=== PATIENT | male | born 1960 | race Caucasian/White ===

== ENCOUNTER 2018-07-07 07:23 | Inpatient (IN) ==
[2018-07-07] MEDS ORDERED: Isovue-370 500 ML INFUS..BTL IV ONE (07:42)
[2018-07-07] MEDS ORDERED: *HR* FentaNYL (PF) 100 MCG/2 ML VIAL IVP ONE (07:42)
[2018-07-07] MEDS ORDERED: Ondansetron 4 MG/2 ML VIAL IVP ONE (07:43)
--- NOTE | 2018-07-07 07:46 | Emergency Department Note ---
Disposition Clinical Impression: Anemia, UTI (urinary tract infection), Hyperkalemia, Hyponatremia, Ileus, Abdominal pain, Metastatic cancer Disposition: Admitted As Inpatient Condition: Fair General Adult HPI - General Chief complaint: ED Abdominal Pain Stated complaint: Abdominal Pain Time Seen by Provider: 07/07/18 07:30 Source: EMS Limitations: no limitations - History of Present Illness Pain Scale: 8 - Related Data Home Medications Medication Instructions Recorded Confirmed Loperamide HCl [Anti-Diarrheal] 2 mg PO Q4HR PRN 07/04/18 07/07/18 Polyethylene Glycol 3350 [MiraLAX] 17 gm PO DAILY PRN 07/04/18 07/07/18 Prochlorperazine Maleate 10 mg PO Q6HR PRN 07/04/18 07/07/18 [Compazine] Morphine Sulfate SR (12 HR) [MS 15 mg PO Q12HR 07/07/18 07/07/18 Contin] Oxycodone HCl/Acetaminophen 1 tab PO Q4H PRN 07/07/18 07/07/18 [Percocet 5-325 mg Tablet] Promethazine [Phenergan] 25 mg PO Q6HR PRN 07/07/18 07/07/18 Allergies Allergy/AdvReac Type Severity Reaction Status Date / Time No Known Allergies Allergy Verified 06/29/18 08:58 Past Medical History - Past Medical History Medical history: Reports: cancer, COPD, other Psychiatric history: Reports: anxiety, depression, prior suicide attempt, previous psychiatric hospitalization - Social History Smoking Status: Current some day smoker Smokeless Tobacco Status: No Alcohol use: Reports: none Drug use: Reports: marijuana Physical Exam - General Limitations: no limitations General appearance: alert Course Vital Signs Temperature 97.9 F 07/07/18 07:28 Pulse Rate 93 07/07/18 07:28 Respiratory Rate 22 07/07/18 07:28 Blood Pressure 116/51 07/07/18 07:28 O2 Sat by Pulse Oximetry 100 07/07/18 07:28 Temperature 97.8 F 07/07/18 09:42 Pulse Rate 87 07/07/18 11:05 Respiratory Rate 23 07/07/18 11:05 Blood Pressure 124/65 07/07/18 11:05 O2 Sat by Pulse Oximetry 100 07/07/18 11:05 Oxygen Delivery Oxygen Delivery Aerosol Mask Medical Decision Making - Lab Data Result diagrams: 07/07/18 08:04 07/07/18 08:04 Lab Results 07/07/18 07/07/18 07/07/18 Range/Units 08:04 08:04 08:04 WBC 3.6 L (4.3-11.1) K/mcL RBC 1.71 L (4.19-5.50) M/mcL Hgb 4.7 L* D (12.9-16.9) g/dL Hct 15.2 L (37.5-50.1) % MCV 88.9 (83.0-100.0) fL MCH 27.5 L (28.0-33.3) pg MCHC 30.9 L (31.6-35.5) g/dL RDW 19.3 H (11.5-14.5) % Plt Count 207 (140-400) K/mcL MPV 10.4 (9.4-12.4) fL Immature Gran % Test Not Performed Seg Neutrophils % 74.0 % Band Neutrophils % 2.0 (0-4) % Lymphocytes % 16.0 % Monocytes % 8.0 % Eosinophils % Test Not Performed Basophils % Test Not Performed Neutrophils # 2.7 (1.6-8.9) K/mcL Lymphocytes # 0.6 (0.6-4.6) K/mcL Monocytes # 0.3 (0.0-1.3) K/mcL Eosinophils # Test Not Performed Basophils # Test Not Performed Platelet Estimate Normal (Normal) Hypochromasia Present A (Not Present) Anisocytosis 1+ A (Not Present) Sodium 128 L (136-145) mEq/L Potassium 5.8 H (3.5-5.1) mEq/L Chloride 97 L (98-107) mEq/L Carbon Dioxide 17 L (23-29) mEq/L BUN 56 H (8-23) mg/dL Creatinine 2.10 H (0.70-1.30) mg/dL Est GFR ( Amer) 39 L (> 60) Est GFR (Non-Af Amer) 32 L (> 60) BUN/Creatinine Ratio 27 H (6-26) Glucose 95 (70-105) mg/dL Calculated Osmolality 281 (280-300) Calcium 8.7 (8.6-10.3) mg/dL Total Bilirubin 1.3 H (0.3-1.0) mg/dL AST 432 H (13-39) Units/L ALT 191 H (7-52) Units/L Alkaline Phosphatase 744 H (34-104) Units/L Troponin I < 0.03 (< 0.04) ng/mL Serum Total Protein 6.0 L (6.4-8.9) g/dL Albumin 3.1 L (3.5-5.7) g/dL Globulin 2.9 (2.4-3.5) g/dL Albumin/Globulin Ratio 1.1 (1.1-2.2) Lipase 10 L (11-82) Units/L Urine Color (Yellow) Urine Clarity (Clear) Urine pH (5.0-8.0) pH Units Ur Specific [place] (1.010-1.025) Urine Protein (Neg-Trace) mg/dL Urine Glucose (UA) (Normal) mg/dL Urine Ketones (Negative) mg/dL Urine Blood (Negative) Urine Nitrite (Negative) Urine Bilirubin (Negative) Urine Urobilinogen (Normal) mg/dL Ur Leukocyte Esterase (Negative) Urine Microscopic RBC (0-3) per hpf Urine Microscopic WBC (0-3) per hpf Ur Squamous Epith Cells (None-Few) per lpf Urine Bacteria (None-Few) per hpf Hyaline Casts (None-Few) per lpf Ur Culture Indicated? (NO) Blood Type O POSITIVE Antibody Screen NEGATIVE Crossmatch See Detail 07/07/18 Range/Units 10:06 WBC (4.3-11.1) K/mcL RBC (4.19-5.50) M/mcL Hgb (12.9-16.9) g/dL Hct (37.5-50.1) % MCV (83.0-100.0) fL MCH (28.0-33.3) pg MCHC (31.6-35.5) g/dL RDW (11.5-14.5) % Plt Count (140-400) K/mcL MPV (9.4-12.4) fL Immature Gran % Seg Neutrophils % % Band Neutrophils % (0-4) % Lymphocytes % % Monocytes % % Eosinophils % Basophils % Neutrophils # (1.6-8.9) K/mcL Lymphocytes # (0.6-4.6) K/mcL Monocytes # (0.0-1.3) K/mcL Eosinophils # Basophils # Platelet Estimate (Normal) Hypochromasia (Not Present) Anisocytosis (Not Present) Sodium (136-145) mEq/L Potassium (3.5-5.1) mEq/L Chloride (98-107) mEq/L Carbon Dioxide (23-29) mEq/L BUN (8-23) mg/dL Creatinine (0.70-1.30) mg/dL Est GFR ( Amer) (> 60) Est GFR (Non-Af Amer) (> 60) BUN/Creatinine Ratio (6-26) Glucose (70-105) mg/dL Calculated Osmolality (280-300) Calcium (8.6-10.3) mg/dL Total Bilirubin (0.3-1.0) mg/dL AST (13-39) Units/L ALT (7-52) Units/L Alkaline Phosphatase (34-104) Units/L Troponin I (< 0.04) ng/mL Serum Total Protein (6.4-8.9) g/dL Albumin (3.5-5.7) g/dL Globulin (2.4-3.5) g/dL Albumin/Globulin Ratio (1.1-2.2) Lipase (11-82) Units/L Urine Color Sue A (Yellow) Urine Clarity Turbid A (Clear) Urine pH 5.0 (5.0-8.0) pH Units Ur Specific [place] 1.025 (1.010-1.025) Urine Protein 30 H (Neg-Trace) mg/dL Urine Glucose (UA) Normal (Normal) mg/dL Urine Ketones Trace H (Negative) mg/dL Urine Blood Trace H (Negative) Urine Nitrite Positive A (Negative) Urine Bilirubin Moderate H (Negative) Urine Urobilinogen 2.0 H (Normal) mg/dL Ur Leukocyte Esterase Small H (Negative) Urine Microscopic RBC 0-3 (0-3) per hpf Urine Microscopic WBC 3-5 H (0-3) per hpf Ur Squamous Epith Cells Moderate H (None-Few) per lpf Urine Bacteria Few (None-Few) per hpf Hyaline Casts None Seen (None-Few) per lpf Ur Culture Indicated? YES A (NO) Blood Type Antibody Screen Crossmatch Critical Care Time Critical Care Time: Yes Total Critical Care Time: 45 Attestation: The high probability of a clinically significant, sudden or life threatening deterioration of the [] system(s) required my full and direct attention, intervention and personal management. The aggregate critical care time was [] minutes. This time is in addition to time spent performing reported procedures but includes the following: [] Data Review and interpretation [] Patient assessment and monitoring of vital signs [] Documentation [] Medication orders and management Attestation Statement - Attestation Attestation: I examined this patient and my medical decision-making was reviewed with the Resident Physician. I agree with the documented findings, disposition and treatment plan as described except to the extent set forth below. [id number] time provided Patient arrives by EMS complaining of increased abdominal girth and smaller caliber stools. He has a history of advanced metastatic cancer-primary kidney. He stopped chemotherapy 3 weeks ago "because it almost killed me." On exam the patient is frail-appearing, thin, emaciated, pale. His abdomen is distended. Concern for constipation versus obstruction versus ileus versus mechanical obstruction. Workup initiated. We are considering discussing the case with palliative care as well for consultation
--- NOTE | 2018-07-07 08:01 | Emergency Department Note ---
Disposition Clinical Impression: Hyperkalemia, Hyponatremia, Ileus, Metastatic cancer Anemia Qualifiers: Anemia type: other cause Other causes of anemia: other cause, not classified Qualified Code(s): D64.89 - Other specified anemias UTI (urinary tract infection) Qualifiers: Urinary tract infection type: site unspecified Hematuria presence: without hematuria Qualified Code(s): N39.0 - Urinary tract infection, site not specified Abdominal pain Qualifiers: Abdominal location: generalized Qualified Code(s): R10.84 - Generalized abdominal pain Disposition: Admitted As Inpatient Condition: Fair Referrals: Gold Whyte Jr, HIGHWAY MAINTENANCE SUPERVISOR [Primary Care Provider] - Forms: ED Satisfaction Letter, Work/School Release Time of Disposition: 10:41 Abdominal Pain HPI - General Chief Complaint: ED Abdominal Pain Stated Complaint: Abdominal Pain Time Seen by Provider: 07/07/18 07:30 Source: patient, EMS Mode of arrival: EMS Limitations: no limitations Nursing Notes Reviewed: Yes Vital Signs Reviewed: Yes - History of Present Illness HPI Narrative: Patient is a 58-year-old male with primary renal cancer with metastases to several different organ systems presenting today with 1 week of nausea, distended abdomen, and abdominal pain. He states that he had his last chemotherapy treatment between 1 and 3 weeks ago, and since then he has been having his symptoms. He endorses fevers and chills, decreased caliber of his stool, decreased oral intake, numbness and tingling in his arms, slight chest pain, shortness of breath, describes his pain as hurting has difficulty describing it, states it is an 8 out of 10 in severity. Also states that he had dysuria a few weeks ago but does not have it anymore. He denies vomiting, and headache. Pain Scale: 8 - Related Data Home Medications Medication Instructions Recorded Confirmed Loperamide HCl [Anti-Diarrheal] 2 mg PO Q4HR PRN 07/04/18 07/04/18 Magic Mouthwash [Magic Mouthwash 10 ml PO QID PRN 07/04/18 07/04/18 BLM] Polyethylene Glycol 3350 [MiraLAX] 17 gm PO DAILY PRN 07/04/18 07/04/18 Prochlorperazine Maleate 10 mg PO Q6HR PRN 07/04/18 07/04/18 [Compazine] Previous Rx's Medication Instructions Recorded Naproxen [Naprosyn] 500 mg PO Q8H PRN #30 tablet 05/02/18 Ondansetron ODT [Zofran ODT] 4 mg SL Q6HR #20 tab.rapdis 05/18/18 Morphine Sulfate SR (12 HR) [MS 1 tab PO Q12HR 30 Days #60 tab 06/30/18 Contin] Oxycodone HCl/Acetaminophen 1 each PO Q4H PRN 30 Days #180 06/30/18 [Percocet 5-325 mg Tablet] tablet Allergies Allergy/AdvReac Type Severity Reaction Status Date / Time No Known Allergies Allergy Verified 06/29/18 08:58 Constitutional: Reports: fever, chills Cardiovascular: Reports: chest pain (slight) Respiratory: Reports: dyspnea Gastrointestinal: Reports: abdominal pain, nausea, constipation. Denies: vomiting, diarrhea Genitourinary: Reports: dysuria (had a few weeks ago, not anymore) Endocrine: Reports: fatigue Abdominal Pain PMH - Past Medical History Medical history: Reports: cancer, COPD, other Male Surgical History: Reports: non-contributory Psychiatric history: Reports: anxiety, depression, prior suicide attempt, previous psychiatric hospitalization - Social History Smoking status: Current some day smoker Alcohol use: Reports: none Drug use: Reports: marijuana Physical Exam - General Limitations: no limitations General appearance: alert, cachectic - Head Head exam: atraumatic, other (several brown growths present on his face and scalp) - Eye Eye exam: Present: scleral icterus (mild ), other (conjunctival pallor) - ENT ENT exam: normal exam, mucous membranes moist - Neck Neck exam: Present: normal inspection, full ROM - Chest Chest inspection: Present: other (several brown growths present on chest wall) - Respiratory Respiratory exam: Present: other (decreased breath sounds in [place], no wheezes appreciated in other [place]) - Cardiovascular Cardiovascular exam: Present: regular rate, normal rhythm - Abdominal Exam Abdominal exam: Present: distention, diminished bowel sounds. Absent: soft Abdominal tenderness: Present: diffuse - Back Exam Back exam: Present: other (kyphotic) - Neurological Exam Neurological exam: Present: alert - Psychiatric Psychiatric exam: Present: flat affect - Skin Skin exam: Present: pallor Course Course Narrative: There is concern for obstruction versus obstipation. Patient looks pale, check deck, and states that he is tired of feeling so badly for so long. Basic labs will be drawn to include CBC CMP lipase. EKG and chest x-ray will be done. Abdominal CT with contrast will be obtained. Pain medication and nausea medication will be administered. Vital Signs Temperature 97.9 F 07/07/18 07:28 Pulse Rate 93 07/07/18 07:28 Respiratory Rate 22 07/07/18 07:28 Blood Pressure 116/51 07/07/18 07:28 O2 Sat by Pulse Oximetry 100 07/07/18 07:28 Temperature 97.8 F 07/07/18 09:42 Pulse Rate 82 07/07/18 10:12 Respiratory Rate 20 07/07/18 10:12 Blood Pressure 114/75 07/07/18 10:12 O2 Sat by Pulse Oximetry 100 07/07/18 10:12 Oxygen Delivery Oxygen Delivery Room Air Abdominal Pain - MDM Narrative Medical decision making narrative: Patient's CT was concerning for ileus, and not any type of construction at this point. It was also concerning for ascites, and new metastases to lower lobes of his lung as well as his liver. Additionally hemoglobin was found to be 4.7 so 2 units of blood were transfused in the emergency department. Furthermore his potassium was found to be 5.8 so 1 g of calcium gluconate was given. Sodium was 128 so [place] will need to be restricted. Patient requested palliative consult, Verena Townsend is on board and will discuss his options for DNR. Patient will be admitted to the hospitalist. Dr. Joy accepts the patient , insisted upon a additional 2 units and a GI consult. GI CLAIM SERVICE REPRESENTATIVE made aware of consult. - Medical Records Medical records reviewed: Yes I reviewed the patient's medical records. - Lab Data Lab results reviewed: Yes I reviewed the patient's lab results. Result diagrams: 07/07/18 08:04 07/07/18 08:04 Lab Results 07/07/18 07/07/18 07/07/18 Range/Units 08:04 08:04 08:04 WBC 3.6 L (4.3-11.1) K/mcL RBC 1.71 L (4.19-5.50) M/mcL Hgb 4.7 L* D (12.9-16.9) g/dL Hct 15.2 L (37.5-50.1) % MCV 88.9 (83.0-100.0) fL MCH 27.5 L (28.0-33.3) pg MCHC 30.9 L (31.6-35.5) g/dL RDW 19.3 H (11.5-14.5) % Plt Count 207 (140-400) K/mcL MPV 10.4 (9.4-12.4) fL Immature Gran % Test Not Performed Seg Neutrophils % 74.0 % Band Neutrophils % 2.0 (0-4) % Lymphocytes % 16.0 % Monocytes % 8.0 % Eosinophils % Test Not Performed Basophils % Test Not Performed Neutrophils # 2.7 (1.6-8.9) K/mcL Lymphocytes # 0.6 (0.6-4.6) K/mcL Monocytes # 0.3 (0.0-1.3) K/mcL Eosinophils # Test Not Performed Basophils # Test Not Performed Platelet Estimate Normal (Normal) Hypochromasia Present A (Not Present) Anisocytosis 1+ A (Not Present) Sodium 128 L (136-145) mEq/L Potassium 5.8 H (3.5-5.1) mEq/L Chloride 97 L (98-107) mEq/L Carbon Dioxide 17 L (23-29) mEq/L BUN 56 H (8-23) mg/dL Creatinine 2.10 H (0.70-1.30) mg/dL Est GFR ( Amer) 39 L (> 60) Est GFR (Non-Af Amer) 32 L (> 60) BUN/Creatinine Ratio 27 H (6-26) Glucose 95 (70-105) mg/dL Calculated Osmolality 281 (280-300) Calcium 8.7 (8.6-10.3) mg/dL Total Bilirubin 1.3 H (0.3-1.0) mg/dL AST 432 H (13-39) Units/L ALT 191 H (7-52) Units/L Alkaline Phosphatase 744 H (34-104) Units/L Troponin I < 0.03 (< 0.04) ng/mL Serum Total Protein 6.0 L (6.4-8.9) g/dL Albumin 3.1 L (3.5-5.7) g/dL Globulin 2.9 (2.4-3.5) g/dL Albumin/Globulin Ratio 1.1 (1.1-2.2) Lipase 10 L (11-82) Units/L Urine Color (Yellow) Urine Clarity (Clear) Urine pH (5.0-8.0) pH Units Ur Specific [place] (1.010-1.025) Urine Protein (Neg-Trace) mg/dL Urine Glucose (UA) (Normal) mg/dL Urine Ketones (Negative) mg/dL Urine Blood (Negative) Urine Nitrite (Negative) Urine Bilirubin (Negative) Urine Urobilinogen (Normal) mg/dL Ur Leukocyte Esterase (Negative) Urine Microscopic RBC (0-3) per hpf Urine Microscopic WBC (0-3) per hpf Ur Squamous Epith Cells (None-Few) per lpf Urine Bacteria (None-Few) per hpf Hyaline Casts (None-Few) per lpf Ur Culture Indicated? (NO) Blood Type O POSITIVE Antibody Screen NEGATIVE Crossmatch See Detail 07/07/18 Range/Units 10:06 WBC (4.3-11.1) K/mcL RBC (4.19-5.50) M/mcL Hgb (12.9-16.9) g/dL Hct (37.5-50.1) % MCV (83.0-100.0) fL MCH (28.0-33.3) pg MCHC (31.6-35.5) g/dL RDW (11.5-14.5) % Plt Count (140-400) K/mcL MPV (9.4-12.4) fL Immature Gran % Seg Neutrophils % % Band Neutrophils % (0-4) % Lymphocytes % % Monocytes % % Eosinophils % Basophils % Neutrophils # (1.6-8.9) K/mcL Lymphocytes # (0.6-4.6) K/mcL Monocytes # (0.0-1.3) K/mcL Eosinophils # Basophils # Platelet Estimate (Normal) Hypochromasia (Not Present) Anisocytosis (Not Present) Sodium (136-145) mEq/L Potassium (3.5-5.1) mEq/L Chloride (98-107) mEq/L Carbon Dioxide (23-29) mEq/L BUN (8-23) mg/dL Creatinine (0.70-1.30) mg/dL Est GFR ( Amer) (> 60) Est GFR (Non-Af Amer) (> 60) BUN/Creatinine Ratio (6-26) Glucose (70-105) mg/dL Calculated Osmolality (280-300) Calcium (8.6-10.3) mg/dL Total Bilirubin (0.3-1.0) mg/dL AST (13-39) Units/L ALT (7-52) Units/L Alkaline Phosphatase (34-104) Units/L Troponin I (< 0.04) ng/mL Serum Total Protein (6.4-8.9) g/dL Albumin (3.5-5.7) g/dL Globulin (2.4-3.5) g/dL Albumin/Globulin Ratio (1.1-2.2) Lipase (11-82) Units/L Urine Color Sue A (Yellow) Urine Clarity Turbid A (Clear) Urine pH 5.0 (5.0-8.0) pH Units Ur Specific [place] 1.025 (1.010-1.025) Urine Protein 30 H (Neg-Trace) mg/dL Urine Glucose (UA) Normal (Normal) mg/dL Urine Ketones Trace H (Negative) mg/dL Urine Blood Trace H (Negative) Urine Nitrite Positive A (Negative) Urine Bilirubin Moderate H (Negative) Urine Urobilinogen 2.0 H (Normal) mg/dL Ur Leukocyte Esterase Small H (Negative) Urine Microscopic RBC 0-3 (0-3) per hpf Urine Microscopic WBC 3-5 H (0-3) per hpf Ur Squamous Epith Cells Moderate H (None-Few) per lpf Urine Bacteria Few (None-Few) per hpf Hyaline Casts None Seen (None-Few) per lpf Ur Culture Indicated? YES A (NO) Blood Type Antibody Screen Crossmatch - Radiology Data Radiology results reviewed: Yes I reviewed the patient's radiology results. Abdomen/Pelvis CT 07/07/18 07:42 IMPRESSION: 1. Few gas-filled distended loops of small bowel notable in left pelvis could indicate adynamic ileus. Stool and gas seen within the and colon. 2. Moderate to large ascites which is new compared to prior. 3. New heterogeneous appearance to liver could suggest multiple hepatic metastases. Follow-up PET/CT could be helpful for further evaluation. 4. Redemonstration of heterogeneous mass within right aspect of retroperitoneum may be of adrenal gland origin. Please correlate with findings from prior PET from 04/05/2018. 5. Redemonstration of retroperitoneal lymphadenopathy. 6. Multiple new nodules seen in visualized lung bases. D/ / Troy Gandhi / Troy Gandhi Interpreting Provider: Troy Gandhi Chest X-Ray 07/07/18 07:42 IMPRESSION: 1. No acute cardiopulmonary disease. 2. Emphysema. 3. Stable ill-defined left upper lobe nodules, which have previously been worked up with PET-CT. D/ / Boaz Overton MD / Boaz Overton MD Interpreting Provider: Boaz Overton MD - EKG Data EKG attestation: Yes I reviewed and interpreted this EKG. EKG results narrative: HR 93, rhythm sinus, normal axis. DC 121, QRS 84, QTC 448. No evidence of ST elevation or depression.
[2018-07-07 08:16] LABS: Hematocrit 15.2 % (37.5-50.1); Mean Corpuscular HGB Conc 30.9 g/dL (31.6-35.5); Mean Corpuscular Hemoglobin 27.5 pg (28.0-33.3); Mean Corpuscular Volume 88.9 fL (83.0-100.0); Mean Platelet Volume 10.4 fL (9.4-12.4); Platelet Count 207 K/mcL (140-400); Red Blood Count 1.71 M/mcL (4.19-5.50); Red Cell Distribution Width 19.3 % (11.5-14.5)
[2018-07-07 08:17] LABS: Lymphocytes # 0.6 K/mcL (0.6-4.6); Monocytes # 0.3 K/mcL (0.0-1.3)
[2018-07-07 08:29] LABS: Hemoglobin 4.7 g/dL (12.9-16.9)
[2018-07-07 08:35] LABS: Troponin I < 0.03 ng/mL (< 0.04)
[2018-07-07 08:36] LABS: Alanine Aminotransferase 191 Units/L (7-52); Albumin 3.1 g/dL (3.5-5.7); Albumin/Globulin Ratio 1.1 (1.1-2.2); Alkaline Phosphatase 744 Units/L (34-104); Aspartate Amino Transferase 432 Units/L (13-39); BUN/Creatinine Ratio 27 (6-26); Bilirubin,Total 1.3 mg/dL (0.3-1.0); Blood Urea Nitrogen 56 mg/dL (8-23); Calcium 8.7 mg/dL (8.6-10.3); Carbon Dioxide 17 mEq/L (23-29); Chloride 97 mEq/L (98-107); Globulin 2.9 g/dL (2.4-3.5); Glucose 95 mg/dL (70-105); Lipase 10 Units/L (11-82); Osmolality,Calculated 281 (280-300); Potassium 5.8 mEq/L (3.5-5.1); Sodium 128 mEq/L (136-145); eGFR For Non-African Americans 32 (> 60)
[2018-07-07 08:43] LABS: Anisocytosis 1+ (Not Present); Hypochromasia Present (Not Present); Neutrophils # 2.7 K/mcL (1.6-8.9); Platelet Estimate Normal (Normal)
[2018-07-07] MEDS ORDERED: 0.9 % Sodium Chloride 250 ML ONE ×2 (09:17→18:22)
[2018-07-07] MEDS ORDERED: Insulin Human Regular 10 UNIT in 0.9 % Sodium Chloride 10 ML IV ONE (10:15)
[2018-07-07] MEDS ORDERED: Albuterol Neb 1.25 MG/3 ML VIAL IH ONE (10:15)
[2018-07-07] MEDS ORDERED: *HR* Dextrose 50 % in Water (Syg) 50 ML SYRINGE IVP ONE (10:15)
[2018-07-07 10:17] LABS: Bilirubin,Urine Moderate (Negative); Blood,Urine Trace (Negative); Clarity,Urine Turbid (Clear); Glucose,Urine (UA) Normal (Normal); Ketones,Urine Trace mg/dL (Negative); Leukocyte Esterase,Urine Small (Negative); Nitrite,Urine Positive (Negative); Protein,Urine 30 mg/dL (Neg-Trace); Specific Gravity,Urine 1.025 (1.010-1.025)
[2018-07-07 10:20] LABS: Hyaline Casts,Urine None Seen per lpf (None-Few)
[2018-07-07] MEDS ORDERED: Methylnaltrexone 12 MG/0.6 ML SYRINGE SQ ONE (10:20)
[2018-07-07 10:22] LABS: Color,Urine Amber (Yellow)
[2018-07-07] MEDS ORDERED: cefTRIAXone 1,000 MG in Water for inj. (sterile) 20 ML 10 ML IVP ONE (10:25)
[2018-07-07] MEDS ORDERED: Albuterol 2.5 MG/3 ML NEBULIZER IH ONE (10:30)
[2018-07-07 10:32] LABS: Bacteria,Urine Few per hpf (None-Few); RBC,Urine 0-3 per hpf (0-3); Squamous Epithelial Cell,Urine Moderate per lpf (None-Few)
[2018-07-07] MEDS ORDERED: Naloxone 0.4 MG/ML INJ IVP PRN (10:55)
[2018-07-07 11:22] LABS: INR 1.4; Prothrombin Time 15.2 Seconds (9.4-12.1)
[2018-07-07 11:25] LABS: Activated Partial Thrombo Time 27.7 Seconds (26.0-36.0)
[2018-07-07] MEDS ORDERED: OXYCODONE Oral CONC 10 MG/0.5 ML ORAL.SYG SL PRN (11:35)
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
[2018-07-07] MEDS ORDERED: Ondansetron 4 MG/2 ML VIAL IVP PRN (11:36)
[2018-07-07] MEDS: OXYCODONE Oral CONC 10 MG/0.5 ML ORAL.SYG SL PRN (13:33)
--- NOTE | 2018-07-07 13:50 | IR Progress Note ---
Vital Signs: Vital Signs/O2 Sat, Most Current Temp Pulse Resp BP Pulse Ox 98.1 F 79 16 150/86 100 07/07/18 13:29 07/07/18 13:29 07/07/18 13:29 07/07/18 13:29 07/07/18 13:29 Assessment and Plan Referred for paracentesis. Review CT scan shows small volume ascites in pelvis. Too small for paracentesis.
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
[2018-07-07] MEDS ORDERED: *HR* FentaNYL (PF) 100 MCG/2 ML VIAL IVP PRN (17:42)
[2018-07-07] MEDS: *HR* FentaNYL (PF) 100 MCG/2 ML VIAL IVP SCH (20:45)
[2018-07-08] MEDS: OXYCODONE Oral CONC 10 MG/0.5 ML ORAL.SYG SL PRN (01:54)
[2018-07-08] MEDS: *HR* LORazepam 2 MG/ML VIAL IVP SCH ×6 (03:30→20:15)
[2018-07-08 04:01] LABS: Hematocrit 24.5 % (37.5-50.1)
[2018-07-08 04:08] LABS: Hemoglobin 7.9 g/dL (12.9-16.9)
[2018-07-08] MEDS: *HR* FentaNYL (PF) 100 MCG/2 ML VIAL IVP SCH ×6 (04:11→20:55)
[2018-07-08 04:18] LABS: Calcium 8.1 mg/dL (8.6-10.3); Potassium 5.6 mEq/L (3.5-5.1)
[2018-07-08] MEDS: cefTRIAXone 1,000 MG in Water for inj. (sterile) 20 ML 10 ML IVP SCH (09:02)
--- NOTE | 2018-07-08 09:19 | Electrocardiograph Report ---
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
--- NOTE | 2018-07-08 09:38 | Electrocardiograph Report ---
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
--- NOTE | 2018-07-08 10:22 | Event Note ---
Date of Encounter: 07/08/18 Time of Encounter: 10:00 Chart reviewed, no intervention planned from GI. D/W patient - he wants to be comfortable. Fentanyl has been working fairly well - he has refused a few scheduled doses. Spoke with pt regarding transitioning to [facility] hosp[facility] to further work on his pain control, with eventual transition back to [facility] with hospice care, and he is agreeable. Contacted Ladonna Gonzalez manager hospice who will be out later today to enroll patient. Only concern is if patient does not maintain his mental status prior to enrollment, no family has been able to be reached. If he is unable to sign himself in later today, he may have to remain under inpatient care. D/W nurse and hospitalist.
--- NOTE | 2018-07-08 14:13 | Discharge Summary ---
Orders not resulted at time of discharge: Pending orders 07/07/18 11:42 Cell Count w Diff, Body Fluid [BF] Routine Culture,Body Fluid [RM] Routine Date of Encounter: 07/08/18 Time of Encounter: 14:11 - Discharge Diagnosis (1) Abdominal pain Priority: Primary Status: Acute Qualifiers: Abdominal location: generalized Qualified Code(s): R10.84 - Generalized abdominal pain (2) UTI (urinary tract infection) Priority: Primary Status: Acute Qualifiers: Urinary tract infection type: site unspecified Hematuria presence: without hematuria Qualified Code(s): N39.0 - Urinary tract infection, site not specified (3) NIKIA (acute kidney injury) Priority: Primary Status: Acute (4) Metastatic cancer Priority: Primary Status: Acute (5) Ascites Priority: Primary Status: Acute Qualifiers: Ascites type: other type Qualified Code(s): R18.8 - Other ascites (6) Ileus Priority: Primary Status: Acute (7) Severe anemia Priority: Secondary Status: Chronic Hospital course: Mr. Zavala is a 58 year old male Discharge discussed with: patient, nurse - Time Spent with Patient Total time spent providing and/or coordinating discharge services: Greater than 30 minutes (40 minutes..) - Discharge Medications Home Medications: Loperamide HCl [Anti-Diarrheal] 2 mg PO Q4HR PRN 07/04/18 [History] Polyethylene Glycol 3350 [MiraLAX] 17 gm PO DAILY PRN 07/04/18 [History] Prochlorperazine Maleate [Compazine] 10 mg PO Q6HR PRN 07/04/18 [History] Morphine Sulfate SR (12 HR) [MS Contin] 15 mg PO Q12HR 07/07/18 [History] Oxycodone HCl/Acetaminophen [Percocet 5-325 mg Tablet] 1 tab PO Q4H PRN [History] Promethazine [Phenergan] 25 mg PO Q6HR PRN 07/07/18 [History] FentaNYL (PF) 50 mcg IVP Q1H PRN 2 Days #4 vial 07/08/18 [Rx] FentaNYL (PF) 50 mcg IVP Q4H 2 Days #10 vial 07/08/18 [Rx] LORazepam [Ativan] 1 mg IVP Q4HR 2 Days #4 vial 07/08/18 [Rx] OXYCODONE Oral CONC [Oxycodone Oral Conc] 10 mg SL Q4H PRN 2 Days #4 oral.syg [Rx] Ondansetron [Zofran] 4 mg IVP Q6HR PRN vial 07/08/18 [Rx] Allergies/Adverse Reactions: 3 Allergy/AdvReac Type Severity Reaction Status Date / Time No Known Allergies Allergy Verified 06/29/18 08:58 Date of admission: 07/07/18 11:15 Primary care physician: Gold Whyte Jr, COPER HAND Consults: 07/07/18 11:41 Consult to Interventional Radiology [CONS] Routine Consulting Provider: Radiology Interventional Cols Reason for Consult: palliative paracentesis for pt's comfort Call Completed: Yes 07/07/18 13:09 Consult to Acoustical Tile Patternmaker [CONS] Routine Reason for SW Consult: ECF 07/07/18 14:21 Consult to PICC team [Consult to Invasive Line Access Team] [CONS] Routine Reason for Consult: limited access, anemic Line Type: EPIV Discharging clinician: Angus Stock Anticipated date of discharge: 07/08/18 - Constitutional Vitals: Temp Pulse Resp BP Pulse Ox 97.4 F L 89 16 124/86 95 07/08/18 10:43 07/08/18 10:43 07/08/18 10:43 07/08/18 10:43 07/08/18 10:43 General appearance: Present: A&O X 3, answers questions appropriately Exam: xx - Patient Status Disposition: Hospice - Medical Facility Condition: Fair Functional capacity at discharge: bed bound Overall status at discharge: other (declining; expected to soon..) - Discharge Instructions Follow Up With: Gold Whyte Jr, COPER HAND [Primary Care Provider] - - Diet and Activity Activity: other (bed-bound) Diet: regular diet - VTE Deep Vein Thrombosis/Pulmonary Embolism Present on Admission: No
--- NOTE | 2018-07-08 14:36 | Physician Discharge Referral ---
Home Health/Hosp Referral Info Transfer to: Hospice Attending Provider: Edilberto Stock Provider in Charge Post Discharge: Live Truck Technician - Diagnosis (1) Abdominal pain Priority: Primary Status: Acute (2) UTI (urinary tract infection) Priority: Primary Status: Acute (3) NIKIA (acute kidney injury) Priority: Primary Status: Acute (4) Metastatic cancer Priority: Primary Status: Acute (5) Ascites Priority: Primary Status: Acute (6) Ileus Priority: Primary Status: Acute (7) Severe anemia Priority: Secondary Status: Chronic - Respiratory Orders None Smoking Cessation: Smoking cessation has been advised. For more information, call the [employer] Tobacco Quit Line at 5-452-YNUY-NOW. - Diet/Nutrition Diet/Nutrition Orders: Regular - Activity Activity Orders: Bedrest - Services Needed Following services are medically necessary services: Nursing, Home Health Aide - Transfer Medications Home Medications: Loperamide HCl [Anti-Diarrheal] 2 mg PO Q4HR PRN 07/04/18 [History] Polyethylene Glycol 3350 [MiraLAX] 17 gm PO DAILY PRN 07/04/18 [History] Prochlorperazine Maleate [Compazine] 10 mg PO Q6HR PRN 07/04/18 [History] Morphine Sulfate SR (12 HR) [MS Contin] 15 mg PO Q12HR 07/07/18 [History] Oxycodone HCl/Acetaminophen [Percocet 5-325 mg Tablet] 1 tab PO Q4H PRN [History] Promethazine [Phenergan] 25 mg PO Q6HR PRN 07/07/18 [History] FentaNYL (PF) 50 mcg IVP Q1H PRN 2 Days #4 vial 07/08/18 [Rx] FentaNYL (PF) 50 mcg IVP Q4H 2 Days #10 vial 07/08/18 [Rx] LORazepam [Ativan] 1 mg IVP Q4HR 2 Days #4 vial 07/08/18 [Rx] OXYCODONE Oral CONC [Oxycodone Oral Conc] 10 mg SL Q4H PRN 2 Days #4 oral.syg [Rx] Ondansetron [Zofran] 4 mg IVP Q6HR PRN vial 07/08/18 [Rx] Allergies/Adverse Reactions: 3 Allergy/AdvReac Type Severity Reaction Status Date / Time No Known Allergies Allergy Verified 06/29/18 08:58 Certification: Further, I certify that my clinical findings support that this patient is homebound (i.e. absences from home require considerable and taxing effort and are for medical reasons or yazidism services or infrequently or short duration when for other reasons) because: Homebound Reason: Leaving home requires considerable and taxing effort due to condition Attestation: My signature below is to certify that this patient is under my care and that I, or nurse practitioner, or a physician's radiology physician assistant working with me, has a face-to -face encounter with this patient.
[2018-07-09] MEDS: *HR* LORazepam 2 MG/ML VIAL IVP SCH ×3 (00:46→08:28)
[2018-07-09] MEDS: *HR* FentaNYL (PF) 100 MCG/2 ML VIAL IVP SCH ×2 (00:46→05:54)
[2018-07-09] MEDS: OXYCODONE Oral CONC 10 MG/0.5 ML ORAL.SYG SL PRN (02:01)
[2018-07-09 07:49] VITALS: BP 100/70
[2018-07-09] MEDS: cefTRIAXone 1,000 MG in Water for inj. (sterile) 20 ML 10 ML IVP SCH (08:28)
== END 2018-07-09 09:07 | disposition hospice, inpatient (51) | DRG 461 ==
LOC: EMEROOARM 07:23 → 2SOUTHHOLD 11:15 → SUATTDRO 11:15 → 2SOUTHHOLD 11:39 → 2ANU 19:16
PROVIDERS: ADMIT Internal Medicine; ATTEND Internal Medicine

== ENCOUNTER 2018-07-08 09:12 | Inpatient (IN) ==
[2018-07-08] MEDS ORDERED: Atropine Sulfate 1% 40 DROP/2 ML BOTTLE SL PRN (10:39)
[2018-07-08] MEDS ORDERED: Ondansetron 4 MG/2 ML VIAL IVP PRN (10:39)
[2018-07-08] MEDS ORDERED: Bisacodyl 10 MG RECTAL SUPPOSITORY RC PRN (10:39)
[2018-07-08] MEDS ORDERED: *HR* FentaNYL (PF) 100 MCG/2 ML VIAL IVP PRN (10:43)
[2018-07-08] MEDS ORDERED: *HR* FentaNYL PATCH 25 MCG PATCH TD SCH (10:45)
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
--- NOTE | 2018-07-09 10:05 | Palliative Progress Note ---
Date of Encounter: 07/09/18 Time of Encounter: 09:00 - Assessment and plan (1) Nausea Current Visit: No Status: Acute Assessment and plan: Has Ondansetron available PRN. Taking sips of liquids only. Denies nausea this am. (2) Anxiety Current Visit: No Status: Acute Assessment and plan: Lorazepam PRN as needed and adjust if required. (3) Abdominal pain Current Visit: No Status: Acute Assessment and plan: He did not get Hospice chart opened yesterday, so new medication (Fentanyl patch ) was not started. D/W hospice nurse it consulting director, (Lisa) and she will be out to admit this am. Will begin Fentanyl patch, with Oxycodone for breakthrough pain , and IV Fentanyl if requires more. Some concern for absorption of patch with his cachexia. Will continue GIP care while being titrated. Qualifiers: Abdominal location: generalized Qualified Code(s): R10.84 - Generalized abdominal pain (4) Goals of care, counseling/discussion Current Visit: No Status: Chronic Assessment and plan: Continue GIP for symptom management. If he tolerates transition to Fentanyl patch and oral medication for breakthrough, then we can look at discharge back to [facility] with continued hospice care. (5) Metastatic cancer Current Visit: No Status: Acute - Time Spent With Patient Total time spent is greater than 50% in coordination of care (as documented) at patient's floor/unit and/or counseling patient: 25 - 35 minutes - Subjective Interval history: Patient sleeping on my arrival but awakens easily. States he is comfortable at present. Having difficulty with voiding - willing to try catheter. Vitals stable. - Constitutional General appearance: Present: no acute distress - Eye Eye exam: Present: scleral icterus - Respiratory Respiratory exam: Present: decreased breath sounds, CTAB - Cardiovascular Cardiovascular exam: Present: +S1, +S2 - GI/Abdominal GI/Abdominal exam: Present: diminished bowel sounds, distended, firm - Extremities Exam Extremities exam: Present: normal capillary refill, normal inspection - Neurological Exam Neurological exam: Present: alert, oriented X3 Additional comments: Generalized weakness - Skin Skin exam: Present: dry, warm Palliative Quality Palliative Quality: Screen for Code Status: Yes, Screen for Goals of Care: Yes, Screen for Pain: Yes, If Pain Regimen Started, Initiate Bowel Regimen: Yes, Screen for Nausea/Vomitting: Yes Code Status: 07/08/18 10:39 Resuscitation Status: Active [RES] Routine Comment: Resuscitation Status: DNR-Comfort Care Consult Discharge Plan - Plan Referrals: Gold Whyte Jr, ARTIFICIAL FOLIAGE ARRANGER [Primary Care Provider] -
[2018-07-09] MEDS ORDERED: *HR* FentaNYL PATCH 25 MCG PATCH TD SCH (10:45)
[2018-07-09] MEDS: OXYCODONE Oral CONC 10 MG/0.5 ML ORAL.SYG SL PRN ×3 (11:48→22:30)
[2018-07-09] MEDS: *HR* LORazepam 2 MG/ML VIAL IVP PRN ×2 (17:12→23:38)
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
[2018-07-10] MEDS: OXYCODONE Oral CONC 10 MG/0.5 ML ORAL.SYG SL PRN (04:31)
[2018-07-10] MEDS: *HR* LORazepam 2 MG/ML VIAL IVP PRN (04:31)
[2018-07-10 06:52] VITALS: BP 71/45
--- NOTE | 2018-07-10 10:09 | Palliative Progress Note ---
Date of Encounter: 07/10/18 Time of Encounter: 09:15 - Assessment and plan (1) Metastatic cancer Current Visit: No Status: Acute (2) Goals of care, counseling/discussion Current Visit: No Status: Chronic Assessment and plan: Patient to remain admitted GIP for further management of medication. (3) Ascites Current Visit: No Status: Acute Qualifiers: Ascites type: other type Qualified Code(s): R18.8 - Other ascites (4) Retention, urine Current Visit: Yes Status: Acute (5) Tachypnea Current Visit: Yes Status: Acute Assessment and plan: Continue to utilize Fentanyl for control of pain and dyspnea. - Time Spent With Patient Total time spent is greater than 50% in coordination of care (as documented) at patient's floor/unit and/or counseling patient: less than 15 minutes - Subjective Interval history: Patient lying in bed with eyes open upon arrival for assessment. No reaction to verbal, tactile, and pain stimulation. Eyes nonreactive. No family present at bedside. Agonal breathing noted. - Constitutional General appearance: Present: disheveled, mild distress, thin - Head Head exam: Present: atraumatic, normal inspection - Eye Eye exam: Present: normal appearance. Absent: PERRL Pupils: Absent: normal accommodation, PERRL - ENT ENT exam: Present: mucous membranes dry, normal external ear exam - Neck Neck exam: Present: normal inspection - Respiratory Respiratory exam: Present: accessory muscle use, respiratory distress, rhonchi, wheezes, tachypnea - Cardiovascular Cardiovascular exam: Present: irregular rhythm, +S1, +S2 - GI/Abdominal GI/Abdominal exam: Present: diminished bowel sounds, distended, firm. Absent: guarding - Rectal Rectal exam: Present: deferred - Extremities Exam Extremities exam: Absent: normal capillary refill, normal inspection, pedal edema (mottling noted.) - Neurological Exam Neurological exam: Present: altered - Psychiatric Psychiatric exam: Present: flat affect - Skin Skin exam: Present: dry, mottled, warm Palliative Quality Palliative Quality: Screen for Code Status: Yes, Screen for Goals of Care: Yes, Screen for Pain: Yes, If Pain Regimen Started, Initiate Bowel Regimen: Yes, Screen for Nausea/Vomitting: Yes Code Status: 07/08/18 10:39 Resuscitation Status: Active [RES] Routine Comment: Resuscitation Status: DNR-Comfort Care Consult Discharge Plan - Plan Referrals: Gold Whyte Jr, HOSPITAL RECRUITER [Primary Care Provider] -
--- NOTE | 2018-07-10 10:15 | Death Note ---
Discharge Sum: Summary - Date and Time Date of admission: 07/09/18 09:26 Date of : 07/10/18 Time of : 10:00 - Additional Data Confirmation of as documented by pronouncing clinician: no pulse, no respirations, no heart sounds, pupils fixed and dilated Family: not available Attending physician: Katina Win MD Was code activated?: No Autopsy requested?: No senior examiner notified?: No Organ bank notified?: No Advance directives: Yes Hospice patient?: Yes Discharge Sum: Diag - PCOD Probable Cause of : Respiratory arrest Discharge Sum: Prov - Provider Primary care physician: Gold Whyte Jr, POSTAL DELIVERY OFFICER Admitting clinician: Katina Win Attending physician on admission: Katina Win Consults: 07/08/18 10:39 Consult to Palliative Care [CONS] Routine Comment: Consulting Provider: Palliative Care [place] Reason for Consult: GIP Call Completed: No 07/09/18 18:31 Consult to Urology [CONS] Routine Consulting Provider: Urology [place] Reason for Consult: Palliative patient having urinary retention Time Notified: 18:32 Call Completed: Yes Pronouncing clinician: Claudette [place]
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
== END 2018-07-10 10:00 | disposition expired | DRG 951 ==
LOC: 2ANU 07-09 09:26
PROVIDERS: ADMIT Internal Medicine Hospice and Palliative Medicine; ATTEND Internal Medicine Hospice and Palliative Medicine